=== PATIENT | female | born 1995 | race Caucasian/White ===

== ENCOUNTER 2016-09-27 16:33 | Emergency (ER) | payer BC ==
[2016-09-27] MEDS ORDERED: Amoxicillin/Clavulanate TAB* 875 MG PO ONE (18:23)
[2016-09-27] MEDS ORDERED: methylPREDNISolone SOD SUCC* 125 MG 2 ML VIAL IM ONE (18:23)
--- NOTE | 2016-09-27 18:28 | UC ---
Throat Pain/Nasal Dash HPI - HPI Summary HPI Summary: Patient has has sinus issue the past week, woke up this morning with sudden onset throat pain, and difficulty swollowing solid food. denies fever, voice is muffled - History of Current Complaint Chief Complaint: UCGeneralIllness Stated Complaint: SORE THROAT,CONGESTION Time Seen by Provider: 09/27/16 18:18 Hx Obtained From: Patient Hx Last Menstrual Period: 09/06/16 ?: No Onset/Duration: Sudden Onset, Lasting Hours Severity: Severe Cough: Nonproductive Associated Signs & Symptoms: Positive: Dysphagia, Hoarseness, Sinus Discomfort - Epiglottits Risk Factors Epiglottis Risk Factors: Negative - Allergies/Home Medications Allergies/Adverse Reactions: Allergies Allergy/AdvReac Type Severity Reaction Status Date / Time No Known Allergies Allergy Verified 09/27/16 17:56 Home Medications: Home Medications [id number] [Vicks Dayquil/Nyquil Cold] 2 tab PO Q4HR PRN [History Confirmed 09/27/16] Sulfamethoxazole-Trimethoprim [Sulfamethoxazole/Trimetho 400-80 mg/5Ml] 1 tab PO DAILY 09/27/16 [History Confirmed 09/27/16] PMH/Surg Hx/FS Hx/Imm Hx Previously Healthy: Yes - Surgical History Surgical History: Yes Surgery Procedure, Year, and Place: Right Arm Surgery s/p Fx. - Family History Known Family History: Negative: Cardiac Disease, Hypertension - Social History Alcohol Use: Occasionally Substance Use Type: None Smoking Status (MU): Never Smoked Tobacco Household Exposure Type: Cigarettes - Immunization History Most Recent Influenza Vaccination: Not UTD Review of Systems Constitutional: Negative Skin: Negative Eyes: Negative ENT: Sore Throat, Ear Ache, Nasal Discharge Respiratory: Cough Cardiovascular: Negative Gastrointestinal: Negative Genitourinary: Negative Motor: Negative Neurovascular: Negative Musculoskeletal: Negative Neurological: Negative Psychological: Negative All Other Systems Reviewed And Are Negative: Yes Physical Exam Triage Information Reviewed: Yes Appearance: Well-Nourished, Ill-Appearing, Pain Distress Vital Signs: Initial Vital Signs Temp 98.9 F 09/27/16 17:51 Pulse 108 09/27/16 17:51 Resp 16 09/27/16 17:51 BP 143/69 09/27/16 17:51 Pulse Ox 100 09/27/16 17:51 Vital Signs Reviewed: Yes Eye Exam: Normal Eyes: Positive: Conjunctiva Clear ENT: Positive: Pharyngeal erythema, Nasal congestion, TM bulging, Tonsillar swelling - right tonsil +3 large amount of exudate, left tonsil +2, moderate exudate noted, pharynx red and inflammed,, Tonsillar exudate, Muffled/hoarse voice Dental Exam: Normal Neck exam: Normal Neck: Positive: Enlarged Nodes @ - bilateal cervical and occipital Respiratory Exam: Normal Respiratory: Positive: Chest non-tender, No respiratory distress, No accessory muscle use, Wheezing, Inspiration Cardiovascular Exam: Normal Cardiovascular: Positive: No Murmur, Pulses Normal, Tachycardia Abdominal Exam: Normal Abdomen Description: Positive: Nontender, No Organomegaly, Soft Bowel Sounds: Positive: Present Musculoskeletal Exam: Normal Musculoskeletal: Positive: Strength Intact, ROM Intact, No Edema Neurological Exam: Normal Neurological: Positive: Alert, Muscle Tone Normal Psychological Exam: Normal Skin Exam: Normal Throat Pain/Nasal Course/Dx - Course Course Of Treatment: hx obtained, exam performed, meds reviewed solumedrol given , and started on Augmentin, educated on warning signs to report to ER for follow up. - Differential Dx/Diagnosis Differential Diagnosis/HQI/PQRI: Influenza, Laryngitis, Pharyngitis, Sinusitis, Tonsillitis, URI Provider Diagnoses: tonsillitis. sinus congestion Discharge - Discharge Plan Condition: Stable Disposition: HOME Prescriptions: Amoxicillin/Clavulanate TAB* [Augmentin TAB 875*] 875 mg PO BID #20 tab Patient Education Materials: Tonsillitis (ED) Additional Instructions: 1. take the medication as prescribed. 2. Follow up in 2 days if no improvement 3. If you experience any of the following symptoms report to The ER: Difficulty breathing, increased difficulty swallowing, build up of saliva in your mouth, muffled voice, fever, increased pain 4. continue to push fluids and get plenty of rest. Ibuprofen and tylenol for pain and fever.
[2016-09-27 19:24] VITALS: BP 135/73
== END 2016-09-27 19:25 | disposition home or self-care (01) ==
LOC: UCCORT 16:33
DX: J03.90 Acute tonsillitis, unspecified (principal); R09.81 Nasal congestion; R59.0 Localized enlarged lymph nodes; Z77.22 Contact with and (suspected) exposure to environmental tobacco smoke (acute) (chronic)
CPT/HCPCS: 96372; 99202; A9270-GY; G0463; J2930

== ENCOUNTER 2017-03-26 18:55 | Emergency (ER) | payer BC ==
[2017-03-26 19:12] VITALS: BP 148/74
--- NOTE | 2017-03-26 19:47 | UC ---
Throat Pain/Nasal Dash HPI - HPI Summary HPI Summary: YESTERDAY BEGAN HAVING SWOLLEN TONSILS, FEVER, WHITE PATCHES ON THROAT. NO RASHES NO ABDOMINAL PAIN. NO NAUSEA OR VOMITING. NO NECK PAIN, HEADACHE OR NECK STIFFNESS. - History of Current Complaint Chief Complaint: UCGeneralIllness Stated Complaint: SORE THROAT Time Seen by Provider: 03/26/17 19:09 Hx Obtained From: Patient Hx Last Menstrual Period: 2 WKS AGO Onset/Duration: Gradual Onset, Lasting Hours, Still Present Severity: Moderate Cough: None Associated Signs & Symptoms: Positive: Dysphagia, Hoarseness, Fever - Epiglottits Risk Factors Epiglottis Risk Factors: Negative - Allergies/Home Medications Allergies/Adverse Reactions: Allergies Allergy/AdvReac Type Severity Reaction Status Date / Time No Known Allergies Allergy Verified 03/26/17 19:12 PMH/Surg Hx/FS Hx/Imm Hx Previously Healthy: Yes - Surgical History Surgical History: Yes Surgery Procedure, Year, and Place: Right Arm Surgery s/p Fx. - Family History Known Family History: Negative: Cardiac Disease, Hypertension - Social History Occupation: Student Lives: With Family Alcohol Use: Occasionally Substance Use Type: None Smoking Status (MU): Never Smoked Tobacco Household Exposure Type: Cigarettes - Immunization History Most Recent Influenza Vaccination: Not UTD Review of Systems Constitutional: Fever Skin: Negative Eyes: Negative ENT: Sore Throat Respiratory: Negative Cardiovascular: Negative Gastrointestinal: Negative Genitourinary: Negative Motor: Negative Neurovascular: Negative Musculoskeletal: Negative Neurological: Negative Psychological: Negative Is Patient Immunocompromised?: No All Other Systems Reviewed And Are Negative: Yes Physical Exam Triage Information Reviewed: Yes Appearance: No Pain Distress, Well-Nourished, Ill-Appearing - MILDLY Vital Signs: Initial Vital Signs Temp 100.2 F 03/26/17 19:04 Pulse 108 03/26/17 19:04 Resp 18 03/26/17 19:04 BP 148/74 03/26/17 19:04 Pulse Ox 100 03/26/17 19:04 Vital Signs Reviewed: Yes Eye Exam: Normal ENT: Positive: Pharyngeal erythema, TMs normal, Tonsillar swelling, Tonsillar exudate Dental Exam: Normal Neck exam: Normal Neck: Positive: Supple, Nontender, No Lymphadenopathy Respiratory Exam: Normal Respiratory: Positive: Chest non-tender, Lungs clear, Normal breath sounds, No respiratory distress, No accessory muscle use Cardiovascular Exam: Normal Cardiovascular: Positive: RRR, No Murmur, Pulses Normal, Brisk Capillary Refill Abdominal Exam: Normal Musculoskeletal Exam: Normal Neurological Exam: Normal Psychological Exam: Normal Skin Exam: Normal Throat Pain/Nasal Course/Dx - Differential Dx/Diagnosis Differential Diagnosis/HQI/PQRI: Mononucleosis, Pharyngitis, Tonsillitis, URI Provider Diagnoses: TONSILLITIS Discharge - Discharge Plan Condition: Stable Disposition: HOME Prescriptions: Cephalexin CAP* [Keflex CAP*] 500 mg PO QID #40 cap Patient Education Materials: Tonsillitis (ED) Forms: *Physical Education Release, *School Release Referrals: [facility] [place] [facility] [Outside] No Primary Care Phys,NOPCP [Primary Care Provider] -
[2017-03-27 11:00] LABS: EBV Response YES
[2017-03-27 11:34] LABS: Hematocrit 42 % (35-47); Hemoglobin 14.2 g/dl (12.0-16.0); Mean Corpuscular HGB Conc 34 g/dl (31-36); Mean Corpuscular Hemoglobin 29 pg (27-31); Mean Corpuscular Volume 86 fL (80-97); Mean Platelet Volume 9 um3 (7.4-10.4); Red Blood Count 4.84 10^6/ul (4.0-5.4); Red Cell Distribution Width 13 % (10.5-15); White Blood Count 11.2 10^3/ul (3.5-10.8)
[2017-03-27 11:39] LABS: Mono Internal Control QC Line Present
--- NOTE | 2017-03-28 14:54 | UC ---
Progress - Progress Note Progress Note: + monospot, + WBCs slightly elevated 11.2. d/c keflex. no physical activity until evaluated by PCP b/c risk of splenic rupture. rest. disease is self limited adn no medication is indicated for treatment Please call pt
== END 2017-03-26 19:54 | disposition home or self-care (01) ==
LOC: UCCORT 18:55
DX: J03.90 Acute tonsillitis, unspecified (principal)
CPT/HCPCS: 36415; 85025; 86308; 87651; 99212; G0463